=== PATIENT | male | born 1995 | race Caucasian/White ===

== ENCOUNTER 2022-09-27 16:40 | Emergency (ER) | payer OTHER, MEDICAID ==
[~2022-09-27] VITALS: Ht 177.8 cm; Wt 183.7 kg
[~2022-09-27 16:40] MED LIST: [UNRECOGNIZED DRUG - CODE] PO
[2022-09-27 16:53] VITALS: BP 172/88
--- NOTE | 2022-09-27 17:04 | NUR ---
PT WALKED TO BED 9 IN STEADY GAIT. PA BEDSIDE TO EXAM PT.
[2022-09-27] MEDS ORDERED: IBUPROFEN 800 MG TAB PO ONE (17:20)
[2022-09-27] MEDS ORDERED: ACETAMINOPHEN EXTRA STRENGTH 500 MG TAB PO ONE (17:20)
--- NOTE | 2022-09-27 17:32 | NUR ---
ASSUMED PATIENT CARE, NURSING ASSESSMENT COMPLETED.
--- NOTE | 2022-09-27 17:35 | NUR ---
TO XRAY VIA .
[2022-09-27] MEDS ORDERED: LID5T TP (17:44)
[2022-09-27] MEDS ORDERED: CYCL-711 PO (17:44)
[2022-09-27] MEDS ORDERED: IBUP-2213 PO (17:44)
--- NOTE | 2022-09-27 18:48 | NUR ---
Patient discharged with v/s stable. Written and verbal after care instructions FOR HAND CONTUSION AND CERVICAL SPRAIN given and explained. Patient alert, oriented and verbalized understanding of instructions. Ambulatory with steady gait. All questions addressed prior to discharge. ID band removed. Patient advised to follow up with PMD. Rx of FLEXERIL, IBUPROFEN AND LIDODERM PATCH given. Opportunity to ask questions provided and answered.
--- NOTE | 2022-09-27 18:49 | NUR ---
The patient's care was reviewed and supervised by Nanda Bolanos, RN, RN.
== END 2022-09-27 18:48 | disposition home or self-care (01) ==
LOC: MED 16:40
DX: S16.1XXA Strain of muscle, fascia and tendon at neck level, initial encounter (principal); S60.222A Contusion of left hand, initial encounter; S60.221A Contusion of right hand, initial encounter; Z79.1 Long term (current) use of non-steroidal anti-inflammatories (NSAID); Z79.899 Other long term (current) drug therapy; V47.5XXA Car driver injured in collision with fixed or stationary object in traffic accident, initial encounter; Y93.89 Activity, other specified; Y92.410 Unspecified street and highway as the place of occurrence of the external cause; Y99.8 Other external cause status
CPT/HCPCS: 72040; 73130; 99284